=== PATIENT | male | born 1995 | race Caucasian/White ===

== ENCOUNTER 2021-04-06 23:07 | Emergency (ER) | payer MEDICAID, SELFPAY ==
[2021-04-06 23:33] VITALS: BP 102/55; PULSE 84; RESP 18; TEMP 36.8; O2SAT 98; BMI 23.0
--- NOTE | 2021-04-07 00:03 | ED_ITS ---
HPI - Skin/Abscess/Foreign Bdy General Chief complaint: Skin/Abscess/Foreign Body Stated complaint: Abscess Time Seen by Provider: 04/06/21 23:39 Source: patient Mode of arrival: ambulatory Limitations: no limitations History of Present Illness HPI narrative: 25-year-old male with a history perirectal abscesses here with complaints of pain and swelling for several days. No fevers or chills. Related Data Previous Rx's Medication Instructions Recorded amoxicillin 875 mg-potassium 1 tab PO BID #14 tab 04/06/21 clavulanate 125 mg tablet (Augmentin) ciprofloxacin HCl 500 mg tablet 500 mg PO BID #14 tab 04/06/21 Allergies Allergy/AdvReac Type Severity Reaction Status Date / Time No Known Allergies Allergy Verified 04/06/21 23:32 Review of Systems Review of Systems: Yes all other systems are reviewed and are negative Constitutional: Constitutional: Reports no additional constitutional complaints, Denies body ache(s), Denies chills, Denies fever(s), Denies headache(s) and Denies weakness Eyes: Eyes: Reports no additional eye complaints and Denies change in vision ENT: Reports system reviewed and no additional complaints, except as documented, Denies dizziness, Denies headache(s), Denies nasal congestion, Denies nasal discharge and Denies neck pain Cardiovascular: Cardiovascular: Reports no additional cardiovascular complaints, Denies chest pain, Denies leg edema and Denies dyspnea Respiratory: Respiratory: Reports no additional respiratory complaints, Denies cough and Denies dyspnea Gastrointestinal: Gastrointestinal: Reports no additional gastrointestinal complaints, Denies abdominal pain, Denies diarrhea, Denies nausea and Denies vomiting Genitourinary: Genitourinary: Denies urinary incontinence Musculoskeletal: Musculoskeletal: Reports no additional musculoskeletal complaints, Denies back pain, Denies arthralgias, Denies joint swelling, Denies neck pain, Denies numbness and Denies tingling Integumentary/Breasts: Skin/Breast: Reports system reviewed and no additional complaints, except as docu, Reports swelling, Reports erythema and Denies rash Neurologic: Reports system reviewed and no additional complaints, except as documented, Denies Abnormal speech present, Denies dizziness, Denies headache(s), Denies numbness, Denies tingling and Denies weakness PMFSH Past Medical History Attestation statement: The following information was validated with the patient. Source: old records reviewed and nursing notes reviewed Social History Social History Advance Directives: No Physical Exam Vital Signs: Vital Signs: Last Vital Signs Temp 98.3 F 04/06/21 23:33 Pulse 84 04/06/21 23:33 Resp 18 04/06/21 23:33 BP 102/55 L 04/06/21 23:33 Pulse Ox 98 04/06/21 23:33 Body Mass Index 23.0 Const: General: cooperative, healthy appearing, comfortable and no acute distress Orientation/consciousness: patient oriented x3 Limitations: no limitations HENMT: Head: Yes normal to inspection Ears: hearing grossly normal bilaterally General nose exam: Normal external nose present Face and sin us: Yes normal facial exam Mouth: Normal oral and palatal mucosa present Throat: Yes posterior oropharynx normal Eyes: General: appearance normal, both eyes and all related structures Pupils: Equal, round and reactive pupils present Neck: Neck: Yes normal visual inspection Chest: Chest palpation & inspection: normal inspection of the chest Resp: Effort & Inspection: normal respiratory effort Auscultation: clear to auscultation bilaterally Cardio: Rate: regular rate Rhythm: regular rhythm Peripheral pulses: Peripheral pulses 2+ throughout GI: Other: At the 9 o'clock position of the anus there is a fluctuant areas of redness and tenderness approximately 3 cm Inspection: Yes normal to inspection Palpation (GI): Soft to palpation and nontender Auscultation: normal bowel sounds Back/Spine/Pelvis: Thoracic/Lumbar Spine: thoracic and lumbar spine normal to inspection Skin: General skin exam: no rashes or lesions noted Neuro: General: patient oriented x3, no focal motor deficits and normal sensation to monofilament Cranial nerves: Yes Equal, round and reactive pupils present Cognition (Neuro): normal cognition Speech: No Abnormal speech present Gait exam (Neuro): Normal gait present Motor exam (neuro): 5/5 motor strength present throughout Extrem: General: Yes normal to inspection Course Course Course Narrative: 25-year-old male here with the very early perirectal abscess that is local. See procedure note for I&D. 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 Will start patient on oral antibiotics. Reviewed worrisome signs and symptoms of when to return to the emergency department. Comfortable discharge home. MDM - Skin/Abscess/Foreign Bdy Medical Records Attestation: I reviewed the patient's medical records. Lab Data Attestation: I reviewed the patient's lab results. Procedures Abscess I/D Site: eric-rectal Local Anesthetic: lidocaine 2% Amount of anesthesia used (mL): 3 Technique: incised with blade Sent for culture/gram staining?: No Irrigation: No Packing used?: none Discharge Plan Discharge Clinical Impression: Abscess, perirectal Patient Disposition: Home, Self-Care Instructions: Abscess Incision and Drainage (DC) Additional Instructions: Start antibiotics as soon as possible Return for increasing pain or fever Prescriptions: New amoxicillin-pot clavulanate [Augmentin] 875-125 mg tablet 1 tab PO BID Qty: 14 RF: 0 ciprofloxacin HCl 500 mg tablet 500 mg PO BID Qty: 14 RF: 0 Referrals: Gary Farmer MD [Primary Care Provider] - 2 days Stand Alone Forms: Work/School Release
--- NOTE | 2021-04-07 00:08 | PC.NURSE ---
lidocaine given by MD. no vial leftover to scan
== END 2021-04-07 00:09 | disposition home or self-care (01) ==
PROVIDERS: Emergency Provider Internal Medicine; PCP Internal Medicine Geriatric Medicine
DX: K61.1 Rectal abscess (principal); Z79.899 Other long term (current) drug therapy
CPT/HCPCS: 46040; 99283; 99284

== ENCOUNTER 2021-07-12 19:05 | Emergency (ER) | payer MEDICAID, SELFPAY ==
[2021-07-12 19:09] VITALS: BP 115/59; PULSE 71; RESP 18; TEMP 36.5; O2SAT 97; BMI 21.7
--- NOTE | 2021-07-12 19:56 | ED_ITS ---
HPI - Dental/Oral General Chief complaint: Dental/Oral Stated complaint: tooth pain Time Seen by Provider: 07/12/21 20:07 Source: patient Mode of arrival: ambulatory Limitations: no limitations History of Present Illness HPI Narrative: 25-year-old male presents with 5 days of right tooth pain and swelling. States that he broke his tooth about 5 days ago and does not have a dentist at this time. MD Complaint: tooth pain Location: Tooth # Teeth map: 1. Broken Onset (ago): day(s) (5) Duration: constant Severity: moderate Severity scale (1-10): 6 Relieving factors: nothing Exacerbating factors: chewing, cold, heat and drinking fluids Context: history of dental caries and poor dental care Associated symptoms: gum swelling Treatment prior to arrival: none Related Data Previous Rx's Medication Instructions Recorded amoxicillin 875 mg-potassium 1 tab PO BID #14 tab 04/06/21 clavulanate 125 mg tablet (Augmentin) ciprofloxacin HCl 500 mg tablet 500 mg PO BID #14 tab 04/06/21 amoxicillin 875 mg-potassium 1 tab PO Q12H 10 Days #20 tab 07/12/21 clavulanate 125 mg tablet Allergies Allergy/AdvReac Type Severity Reaction Status Date / Time No Known Allergies Allergy Verified 07/12/21 19:08 Review of Systems Review of Systems: Constitutional: No Fever, No Chills ENT/Mouth: No swallowing difficulty, no change in voice, positive dental pain, positive jaw pain, positive facial swelling Eyes: No Eye Pain, No Swelling Cardiovascular: No Chest Pain, No SOB Respiratory: No Cough, No Sputum, No Wheezing, No Smoke Exposure, No Dyspnea Gastrointestinal: No Nausea, No Vomiting, No Diarrhea Genitourinary: No Dysuria Musculoskeletal: No Myalgias Skin: No rash Neuro: No Weakness, No Numbness, No Headache Yes all other systems are reviewed and are negative PMFSH Past Medical History Attestation statement: The following information was validated with the patient. Source: old records reviewed Social History Social History Alcohol intake: unknown Patient Tobacco Use Status: Tobacco use Unknown Use of substances other than those prescribed or required for medical reasons: Unknown Advance Directives: No Advance Directives Information Provided: No Physical Exam Vital Signs: Vital Signs: Last Vital Signs Temp 97.7 F 07/12/21 19:09 Pulse 71 07/12/21 19:09 Resp 18 07/12/21 19:09 BP 115/59 L 07/12/21 19:09 Pulse Ox 97 07/12/21 19:09 BMI result Body Mass Index 21.7 Appearance: Alert. Oriented X3. No acute distress. Eyes: Pupils equal, round and reactive to light. ENT: Pharynx normal. Positive dental caries and broken tooth, right-sided mandibular tenderness with swelling. No fluctuance noted. No trismus. Neck: Normal inspection. Neck supple. CVS: Normal heart rate and rhythm. Pulses normal. Respiratory: No respiratory distress. Breath sounds normal. Abdomen: Soft and nontender. Skin: Skin warm and dry. Normal skin color. Normal skin turgor. Extremities: No lower extremity edema. Gait well balanced well coordinated. Neuro: No motor deficit. No sensory deficit. Cranial nerves 2-12 intact. Course Course Course Narrative: 25-year-old male presents with dental pain, broke his tooth approximately 5 day s ago. Noted swelling about 4 days ago. No fevers, chills, difficulty mouth. Able to swallow without difficulty. Plan of care is to treat with Augmentin, Toradol for pain, and Tdap vaccine. Given dental numbers, patient was advised to follow-up with a dentist Patient verbalized understanding of and agrees to plan of care discharge home. Verbalized understanding of signs and symptoms indicating need for emergent intervention MDM - Dental/Oral Differential Diagnosis Differential diagnosis: Likely gingival abscess, dental caries, toothache, dental abscess and fracture of tooth Medical Records Attestation: I reviewed the patient's medical records. Discharge Plan Discharge Clinical Impression: Toothache, Dental caries Patient Disposition: Home, Self-Care Instructions: Dental Abscess (ED), Toothache (ED) Additional Instructions: You were evaluated for dental caries, dental pain and broken tooth. I provided you with a list of emergency dental providers. Please call and make an appointment. Take Augmentin 875 mg every 12 hours for the next 10 days. Alternate Tylenol 650 mg every 6 hours and Motrin 600 mg every 6 hours as needed for pain management. Write down what time you take the medications prevent accidental overdose. Thank you for choosing this emergency department for evaluation. Please follow-up with primary care physician as needed. Return to the emergency department for any new, concerning, or worsening symptoms. Prescriptions: New amoxicillin-pot clavulanate 875-125 mg tablet 1 tab PO Q12H 10 Days Qty: 20 0RF No Action amoxicillin-pot clavulanate [Augmentin] 875-125 mg tablet 1 tab PO BID Qty: 14 0RF ciprofloxacin HCl 500 mg tablet 500 mg PO BID Qty: 14 0RF Stand Alone Forms: Dental Emergency Numbers, Work/School Release Interventions: ED Discharge Assessment Last Done: 07/12/21 20:57 Discharge Date/Time: 07/12/21 20:58
[2021-07-12] MEDS: Ketorolac Tromethamine 60 MG/2 ML VIAL IM (20:47)
[2021-07-12] MEDS: Diphth,Pertus(ACell),Tet Adult 0.5 ML SYRINGE IM (20:47)
[2021-07-12] MEDS: Amoxicillin/Potassium Clav 875 MG TABLET PO (20:48)
== END 2021-07-12 20:58 | disposition home or self-care (01) ==
LOC: HO.ED 20:19
PROVIDERS: Emergency Provider Internal Medicine; PCP Internal Medicine Geriatric Medicine
DX: K08.89 Other specified disorders of teeth and supporting structures (principal); K02.9 Dental caries, unspecified; K03.81 Cracked tooth
CPT/HCPCS: 90471; 90715; 96372; 99284; J1885